=== PATIENT | female | born 1970 | race Two or more races ===

== ENCOUNTER → 2017-02-19 | Outpatient (CLI) | payer MEDICAID ==
[2017-02-19 17:12] LABS: HEMATOCRIT 38.7 % (36.0-47.0); HEMOGLOBIN 13.4 g/dL (12.0-15.5); HGB HCT DIFFERENCE 1.5; MEAN CORPUSCULAR HEMOGLOBIN 30.3 pg (27.0-33.4); MEAN CORPUSCULAR HGB CONC 34.7 g/dL (32.0-36.0); MEAN CORPUSCULAR VOLUME 87 fl (80-97); RED BLOOD COUNT 4.44 10^6/uL (3.72-5.28); RED CELL DISTRIBUTION WIDTH 13.8 % (11.5-14.0); WHITE BLOOD COUNT 9.7 10^3/uL (4.0-10.5)
[2017-02-19 17:37] LABS: ALANINE AMINOTRANSFERASE 25 U/L (9-52); ALBUMIN 4.5 g/dL (3.5-5.0); ALKALINE PHOSPHATASE 106 U/L (38-126); ANION GAP 11 (5-19); ASPARTATE AMINO TRANSFERASE 20 U/L (14-36); BILIRUBIN,DIRECT 0.2 mg/dL (0.0-0.4); BILIRUBIN,TOTAL 0.7 mg/dL (0.2-1.3); BLOOD UREA NITROGEN 10 mg/dL (7-20); CALCIUM 10.2 mg/dL (8.4-10.2); CARBON DIOXIDE 30 mmol/L (22-30); CHLORIDE 102 mmol/L (98-107); CHOLESTEROL 232.39 mg/dL (0-200); CREATININE RESULT 0.63 mg/dL (0.52-1.25); Direct HDL 60 mg/dL (>40); GLUCOSE 104 mg/dL (75-110); POTASSIUM 4.2 mmol/L (3.6-5.0); SODIUM 143.1 mmol/L (137-145); TOTAL PROTEIN 8.2 g/dL (6.3-8.2); TRIGLYCERIDES 164 mg/dL (<150)
[2017-02-19 17:50] LABS: DIRECT LDL 124 mg/dL (<100)
[2017-02-19 17:53] LABS: VLDL CHOLESTEROL 32.8 mg/dL (10-31)
== END ==
LOC: LAB 16:43
PROVIDERS: ATTEND Nurse Practitioner Family
DX: E66.9 Obesity, unspecified (principal); E03.9 Hypothyroidism, unspecified
CPT/HCPCS: 36415; 80053; 80061; 84443; 85027

== ENCOUNTER 2017-11-29 10:24 | Emergency (ER) | payer OTHER ==
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
[2017-11-29] MEDS ORDERED: NAPROXEN 250 MG TABLET PO ONE (12:10)
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
[2017-11-29 12:11] VITALS: BP 131/72
== END 2017-11-29 12:15 | disposition home or self-care (01) ==
LOC: ER 10:24
DX: M79.641 Pain in right hand (principal); M25.511 Pain in right shoulder; M54.2 Cervicalgia; V87.7XXA Person injured in collision between other specified motor vehicles (traffic), initial encounter
CPT/HCPCS: 99284; 70450; 72125; L0120 ×2

== ENCOUNTER → 2020-09-25 | Outpatient (CLI) | payer SELFPAY ==
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
== END ==
LOC: RAD 10:35
PROVIDERS: ATTEND Nurse Practitioner
DX: S13.4XXA Sprain of ligaments of cervical spine, initial encounter (principal); X58.XXXA Exposure to other specified factors, initial encounter; Y93.89 Activity, other specified; Y92.89 Other specified places as the place of occurrence of the external cause
CPT/HCPCS: 72125